=== PATIENT | male | born 2000 | race Two or more races ===

== ENCOUNTER 2020-07-07 20:57 | Emergency (ER) | payer SELFPAY ==
[~2020-07-07] VITALS: Ht 172.7 cm; Wt 61.2 kg
[2020-07-07 21:18] VITALS: BP 112/74
[2020-07-08] MEDS ORDERED: TETANUS-DIPTH-ACEL PERTUSSIS 0.5ML SYR Tdap IM ONE (00:15)
[2020-07-08] MEDS ORDERED: LIDOCAINE 1% HCL (LOCAL ANESTH.) INJ 20ML MDV ONE (01:10)
[2020-07-08] MEDS ORDERED: cefTRIAXone SOD 1,000 MG VL IM ONE (02:00)
[2020-07-08] MEDS ORDERED: IBUPROFEN 800 MG TAB PO ONE (03:45)
[2020-07-08] MEDS ORDERED: BACITRACIN TOP OINT 1 UD PKG TOP ONE (04:00)
[2020-07-08] MEDS ORDERED: NEOMYCIN-BACITRACIN-POLYM 15GM TOP OINT TOP SCH (10:00)
== END 2020-07-08 04:12 | disposition home or self-care (01) ==
LOC: ER 20:57
DX: S90.851A Superficial foreign body, right foot, initial encounter (principal); X58.XXXA Exposure to other specified factors, initial encounter; Y93.89 Activity, other specified; Y92.89 Other specified places as the place of occurrence of the external cause; Y99.8 Other external cause status
CPT/HCPCS: 10120; 73630; 90471; 90715; 96372; 99285; J0696; J2001